=== PATIENT | male | born 1940 | race Caucasian/White ===

== ENCOUNTER 2018-10-10 15:48 | Day surgery (SDC) | payer MEDICARE, BC ==
--- NOTE | 2018-10-10 16:10 | EDM.PDOC ---
ED HPI GENERAL MEDICAL PROBLEM - General Stated Complaint: FOOD IN ESOPHAGUS Time Seen by Provider: 10/10/18 15:48 Source of Information: Reports: Patient, Family History Limitations: Reports: No Limitations - History of Present Illness INITIAL COMMENTS - FREE TEXT/NARRATIVE: 78 y.o.w.m came to the ed with his 4 hours after he swallowed a piece of chicken, which stuck in his lower esophagus. Pt is tot able since noon to pass neither food, nor liquid. He feels pain/pressure at his mid lower at chest and epigastric area. Mild nausea. No SOBn no oter acute med issues. BP 140/90 RR 18 Pulse ox 98% on RA Temp 36.8 HR 60 Onset Date: 10/10/18 Onset Time: 12:00 Duration: Hour(s):, Getting Worse, Intermittent Location: Reports: Abdomen Quality: Reports: Dull Severity: Moderate Improves with: Reports: None Worsens with: Reports: None Context: Reports: Other (Food bolus in esophagus, unable to pass fluid/ food) Associated Symptoms: Reports: No Other Symptoms - Related Data Allergies Allergy/AdvReac Type Severity Reaction Status Date / Time No Known Allergies Allergy Verified 10/06/17 15:46 Home Meds: Home Meds Donepezil HCl [Aricept] 10 mg PO BEDTIME 08/20/15 [History] Fenofibrate,Micronized [Fenofibrate] 134 mg PO DAILY 08/20/15 [History] Metoprolol Succinate 100 mg PO DAILY 08/20/15 [History] Multivitamin with Minerals [Multiple Vitamin] 1 ea PO DAILY 08/20/15 [History] Pantoprazole [ProTONIX] 40 mg PO DAILY 08/20/15 [History] Docosahexanoic Acid/EPA [Fish Oil Concentrate Softgel] 300 mg PO DAILY 10/06/17 [History] Amoxicillin/Clavulanate K [Augmentin 875-125 MG] 1 tab PO BID #7 tablet [Rx] Lisinopril [Zestril] 20 mg PO DAILY #45 tablet 10/09/17 [Rx] Melatonin 3 mg PO BEDTIME PRN #90 tablet 10/09/17 [Rx] Sucralfate [Carafate] 1 gm PO QIDACANDBED #60 tablet 10/10/18 [Rx] Past Medical History HEENT History: Reports: Cataract, Impaired Vision Cardiovascular History: Reports: High Cholesterol, Hypertension Respiratory History: Reports: Other (See Below) Other Respiratory History: SPOUSE STATES PT COUGHS EVERY NIGHT FROM COPD, POSSIBLE SLEEP APNEA Neurological History: Reports: Other (See Below) Other Neuro History: 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 Psychiatric History: Reports: Other (See Below) - Infectious Disease History Infectious Disease History: Reports: Chicken Pox, Measles - Past Surgical History GI Surgical History: Reports: Appendectomy, Hernia, Inguinal Social & Family History - Family History Family Medical History: Noncontributory - Caffeine Use Caffeine Use: Reports: Coffee Other Caffeine Use: 1-2 cups ED ROS GENERAL - Review of Systems Review Of Systems: See Below Constitutional: Reports: No Symptoms HEENT: Reports: No Symptoms Respiratory: Reports: No Symptoms Cardiovascular: Reports: No Symptoms Endocrine: Reports: No Symptoms GI/Abdominal: Reports: Vomiting, Other (possible food bolus in esephagus) : Reports: No Symptoms Musculoskeletal: Reports: No Symptoms Skin: Reports: No Symptoms Neurological: Reports: No Symptoms Psychiatric: Reports: No Symptoms Hematologic/Lymphatic: Reports: No Symptoms Immunologic: Reports: No Symptoms ED EXAM, GI/ABD - Physical Exam Exam: See Below Exam Limited By: No Limitations General Appearance: Alert, WD/WN, Mild Distress Eyes: Bilateral: Normal Appearance Ears: Normal External Exam Nose: Normal Inspection, Normal Mucosa Throat/Mouth: Normal Inspection, Normal Lips, Normal Voice, No Airway Compromise Head: Atraumatic, Normocephalic Neck: Normal Inspection, Supple, Non-Tender, Full Range of Motion Respiratory/Chest: No Respiratory Distress, Lungs Clear, Normal Breath Sounds, No Accessory Muscle Use, Chest Non-Tender Cardiovascular: Normal Peripheral Pulses, Regular Rate, Rhythm, No Edema, No Gallop, No Murmur, No Rub GI/Abdominal Exam: Tender (epigastric) (Male) Exam: Deferred Rectal (Males) Exam: Deferred Back Exam: Normal Inspection, Full Range of Motion Extremities: Normal Inspection, Normal Range of Motion, Non-Tender, Normal Capillary Refill Neurological: Alert, Oriented, CN II-XII Intact, Normal Cognition, Normal Gait Psychiatric: Normal Affect, Normal Mood Skin Exam: Warm, Dry, Intact, Normal Color, No Rash Lymphatic: No Adenopathy Course - Vital Signs Text/Narrative:: 78 y.o.w.m came to the ed with his 4 hours after he swallowed a piece of chicken, which stuck in his lower esophagus. Pt is tot able since noon to pass neither food, nor liquid. He feels pain/pressure at his mid lower at chest and epigastric area. Mild nausea. No SOBn no oter acute med issues. BP 140/90 RR 18 Pulse ox 98% on RA Temp 36.8 HR 60 PE: WNWD W M with a posible food bolus in esophagus Labs: Not indicated Impression: Food bolus in esophagus Tx: LR 125 per hour 4.05 pm Consultation: Dr. Vera, Surgeon: Call the group in and he will do an upper endoscopy Reexam: Ptdid fine in the ED Plan: Upper endoscopy. Dr. Vera took over the care at 4.20 pm Last Recorded V/S: Last Vital Signs Temp 37.1 C 10/10/18 17:21 Pulse 62 10/10/18 18:14 Resp 18 10/10/18 18:14 BP 157/93 H 10/10/18 18:14 Pulse Ox 96 10/10/18 18:14 - Orders/Labs/Meds Orders: Active Orders 24 hr Category Date Time Status Patient Status [ADT] Routine ADT 10/10/18 16:34 Active Patient to Empty Bladder [RC] ASDIRECTED Care 10/10/18 16:34 Active Ready for Discharge [RC] PER UNIT ROUTINE Care 10/10/18 17:16 Active Verify Patient Consent Obtain [RC] ASDIRECTED Care 10/10/18 16:34 Active Resuscitation Status Routine Resus Stat 10/10/18 16:34 Ordered Meds: Medications Discontinued Medications Generic Name Dose Route Start Last Admin Trade Name Dagobertoq PRN Reason Stop Dose Admin Lactated Ringer's 1,000 mls @ 125 mls/hr 10/10/18 16:30 10/10/18 16:35 Ringers, Lactated IV 125 mls/hr ASDIRECTED DAVID Administration Departure - Departure Time of Disposition: 06:00 Disposition: Still A Patient 30 Condition: Good Clinical Impression: Food impaction of esophagus Qualifiers: Encounter type: initial encounter Qualified Code(s): T18.128A - Food in esophagus causing other injury, initial encounter - Discharge Information
[2018-10-10] MEDS ORDERED: Lactated Ringers 1,000 ML IV SCH (16:30)
[2018-10-10] MEDS ORDERED: Lidocaine 2% 100 MG/5 ML Syringe IVPUSH ONE (16:33)
[2018-10-10] MEDS ORDERED: Propofol 200 MG/20 ML SDV IV ONE (16:33)
[2018-10-10] MEDS ORDERED: Succinylcholine 200 MG/10 ML MDV IV ONE (16:33)
[2018-10-10] MEDS ORDERED: Metoclopramide 10 MG/2 ML SDV IVPUSH ONE (16:33)
[2018-10-10] MEDS ORDERED: Ondansetron 4 MG/2 ML SDV IVPUSH ONE (16:33)
--- NOTE | 2018-10-10 16:34 | PCM.HP ---
H&P History of Present Illness - General Date of Service: 10/10/18 Admit Problem/Dx: food impaction - History of Present Illness Initial Comments - Free Text/Narative: 78 yo wm who was eating some chicken and apparently got some food caught in his throat. Apparently has some issues with this in the past. Has never had an upper endoscopy. - Related Data Allergies/Adverse Reactions: Allergies Allergy/AdvReac Type Severity Reaction Status Date / Time No Known Allergies Allergy Verified 10/06/17 15:46 Home Medications: Home Meds Donepezil HCl [Aricept] 10 mg PO BEDTIME 08/20/15 [History] Fenofibrate,Micronized [Fenofibrate] 134 mg PO DAILY 08/20/15 [History] Metoprolol Succinate 100 mg PO DAILY 08/20/15 [History] Multivitamin with Minerals [Multiple Vitamin] 1 ea PO DAILY 08/20/15 [History] Pantoprazole [ProTONIX] 40 mg PO DAILY 08/20/15 [History] Docosahexanoic Acid/EPA [Fish Oil Concentrate Softgel] 300 mg PO DAILY 10/06/17 [History] Amoxicillin/Clavulanate K [Augmentin 875-125 MG] 1 tab PO BID #7 tablet [Rx] Lisinopril [Zestril] 20 mg PO DAILY #45 tablet 10/09/17 [Rx] Melatonin 3 mg PO BEDTIME PRN #90 tablet 10/09/17 [Rx] Past Medical History HEENT History: Reports: Cataract, Impaired Vision Cardiovascular History: Reports: High Cholesterol, Hypertension Respiratory History: Reports: Other (See Below) Other Respiratory History: SPOUSE STATES PT COUGHS EVERY NIGHT FROM COPD, POSSIBLE SLEEP APNEA Neurological History: Reports: Other (See Below) Other Neuro History: 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 Psychiatric History: Reports: Other (See Below) - Infectious Disease History Infectious Disease History: Reports: Chicken Pox, Measles - Past Surgical History GI Surgical History: Reports: Appendectomy, Hernia, Inguinal Social & Family History - Family History Family Medical History: Noncontributory - Caffeine Use Caffeine Use: Reports: Coffee Other Caffeine Use: 1-2 cups H&P Review of Systems - Review of Systems: Review Of Systems: See Below General: Reports: No Symptoms HEENT: Reports: No Symptoms Pulmonary: Reports: No Symptoms Cardiovascular: Reports: Chest Pain Gastrointestinal: Reports: Difficulty Swallowing, Vomiting Genitourinary: Reports: No Symptoms Skin: Reports: No Symptoms Neurological: Reports: Other (memory issues ) Exam - Exam Exam: See Below - Vital Signs Vital Signs: Last Vital Signs Temp 97.8 F 10/10/18 15:50 Pulse 60 10/10/18 15:50 Resp 17 10/10/18 15:50 BP 140/91 H 10/10/18 15:50 Pulse Ox 98 10/10/18 15:50 Weight: 90.718 kg - Exam General: Alert, Cooperative HEENT: PERRLA, Conjunctiva Clear, EACs Clear, EOMI, Hearing Intact Neck: Supple, Trachea Midline Lungs: Clear to Auscultation, Normal Respiratory Effort Cardiovascular: Regular Rate, Regular Rhythm GI/Abdominal Exam: Normal Bowel Sounds, Soft, Non-Tender Skin: Warm, Dry, Intact *Q Meaningful Use (ADM) - VTE *Q VTE Pharmacological Contraindications *Q: Patient Scheduled Surgery - Problem List (1) Food impaction of esophagus SNOMED Code(s): 252402672 ICD Code: T18.128A - FOOD IN ESOPHAGUS CAUSING OTHER INJURY, INITIAL ENCOUNTER Status: Acute Qualifiers: Encounter type: initial encounter Qualified Code(s): T18.128A - Food in esophagus causing other injury, initial encounter Problem List Initiated/Reviewed/Updated: Yes Orders Last 24hrs: Active Orders 24 hr Category Date Time Status Lactated Ringers [Ringers, Lactated] 1,000 ml Med 10/10/18 16:30 Active IV ASDIRECTED Medication Orders Lactated Ringer's (Ringers, Lactated) 1,000 mls @ 125 mls/hr IV ASDIRECTED DAVID Assessment/Plan Comment:: egd with removal. risks explained to the patient. he asks us to proceed.
--- NOTE | 2018-10-10 17:15 | PCM.OPNOTE ---
- General Post-Op/Procedure Note Date of Surgery/Procedure: 10/10/18 Operative Procedure(s): egd with removal food impaction. and biopsy Findings: impacted food at ge junction gastroduodenitis Pre Op Diagnosis: food impaction Post-Op Diagnosis: impacted food at ge junction. gastroduodenitis Anesthesia Technique: General ET Tube Primary Surgeon: Dk Vera Anesthesia Provider: Brayan Lu Pathology: stomach and duodenum Complications: None Condition: Good Free Text/Narrative:: see dictation
--- NOTE | 2018-10-10 18:09 | OR ---
DATE OF OPERATION: 10/10/2018 SURGEON: Dk Vera MD PREOPERATIVE DIAGNOSIS: Food impaction. POSTOPERATIVE DIAGNOSIS: Food impaction and gastroduodenitis with some esophagitis. INDICATIONS FOR PROCEDURE: This is a 78-year-old white male who apparently was eating lunch today and got some chicken stuck and not been able to pass it. He was offered and accepted an EGD. DESCRIPTION OF OPERATION: After an excellent general anesthetic was administered via endotracheal tube, the flexible endoscope was passed without difficulty down the patient's esophagus. The patient was edentulous, so a bite block was not required. At arriving at the GE junction, there was some impacted chicken. We were able to free the impaction with a grasper. The stomach was entered easily. There was really no marked stricture noted. There was some esophageal irritation noted. The scope was passed through the stomach to the duodenum and slowly withdrawn. The following findings were noted. In addition to the esophageal findings are some duodenitis and gastritis and several biopsies were taken. The stomach was deflated, scope was removed. The patient tolerated the procedure well. /[id number] /MODL
[2018-10-10 18:31] VITALS: BP 157/93; PULSE 62
== END 2018-10-10 18:35 | disposition home or self-care (01) ==
LOC: FB.ED 15:48 → FB.SDS 16:32 → FB.MS 17:43 → FB.SDS 18:35
PROVIDERS: ATTEND Surgery
DX: T18.128A Food in esophagus causing other injury, initial encounter (principal); K29.50 Unspecified chronic gastritis without bleeding; K29.80 Duodenitis without bleeding; K21.0 Gastro-esophageal reflux disease with esophagitis; I10 Essential (primary) hypertension; E78.00 Pure hypercholesterolemia, unspecified; J44.9 Chronic obstructive pulmonary disease, unspecified; F03.90 Unspecified dementia, unspecified severity, without behavioral disturbance, psychotic disturbance, mood disturbance, and anxiety; Z79.899 Other long term (current) drug therapy
CPT/HCPCS: 00731; 43239; 43247; 88305; 88342; 99283; J0330; J2001; J2405; J2704; J2765; J7120

== ENCOUNTER 2018-11-09 13:32 | Emergency (ER) | payer MEDICARE, BC ==
[2018-11-09 14:22] VITALS: BP 135/75
[2018-11-09] MEDS ORDERED: Rabies Immune Globulin PF 150 Units/ML 2 ML SDV IM ONE (14:30)
--- NOTE | 2018-11-09 14:36 | EDM.PDOC ---
ED HPI GENERAL MEDICAL PROBLEM - General Chief Complaint: Skin Complaint Stated Complaint: BAT BITE Time Seen by Provider: 11/09/18 14:30 Source of Information: Reports: Patient - History of Present Illness INITIAL COMMENTS - FREE TEXT/NARRATIVE: Patient is a 78 yo WM who was bitten by a bat on his Rt index finger a week ago. he denies any fever/chills,headache,malaise,N/V. he just want to be checked. - Related Data Allergies Allergy/AdvReac Type Severity Reaction Status Date / Time No Known Allergies Allergy Verified 11/09/18 14:16 Home Meds: Home Meds Donepezil HCl [Aricept] 10 mg PO BEDTIME 08/20/15 [History] Metoprolol Succinate 100 mg PO DAILY 08/20/15 [History] Multivitamin with Minerals [Multiple Vitamin] 1 ea PO DAILY 08/20/15 [History] Pantoprazole [ProTONIX] 40 mg PO DAILY 08/20/15 [History] Docosahexanoic Acid/EPA [Fish Oil Concentrate Softgel] 300 mg PO DAILY 10/06/17 [History] Lisinopril [Zestril] 20 mg PO DAILY #45 tablet 10/09/17 [Rx] Melatonin 3 mg PO BEDTIME PRN #90 tablet 10/09/17 [Rx] Sucralfate [Carafate] 1 gm PO QIDACANDBED #60 tablet 10/10/18 [Rx] Past Medical History HEENT History: Reports: Cataract, Impaired Vision Cardiovascular History: Reports: High Cholesterol, Hypertension Respiratory History: Reports: Other (See Below) Other Respiratory History: SPOUSE STATES PT COUGHS EVERY NIGHT FROM COPD, POSSIBLE SLEEP APNEA Neurological History: Reports: Other (See Below) Other Neuro History: 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 Psychiatric History: Reports: Other (See Below) - Infectious Disease History Infectious Disease History: Reports: Chicken Pox, Measles - Past Surgical History GI Surgical History: Reports: Appendectomy, Hernia, Inguinal Social & Family History - Family History Family Medical History: Noncontributory - Caffeine Use Caffeine Use: Reports: Coffee Other Caffeine Use: 1-2 cups ED ROS GENERAL - Review of Systems Review Of Systems: See Below Constitutional: Reports: No Symptoms HEENT: Reports: No Symptoms Respiratory: Reports: No Symptoms Cardiovascular: Reports: No Symptoms Endocrine: Reports: No Symptoms GI/Abdominal: Reports: No Symptoms : Reports: No Symptoms, Urinary Retention Skin: Reports: No Symptoms Neurological: Reports: No Symptoms ED EXAM, SKIN/RASH Exam: See Below Exam Limited By: No Limitations General Appearance: Alert, WD/WN, No Apparent Distress Ears: Normal External Exam, Normal Canal, Hearing Grossly Normal, Normal TMs Nose: Normal Inspection, Normal Mucosa, No Blood Throat/Mouth: Normal Inspection, Normal Lips, Normal Teeth, Normal Gums, Normal Oropharynx, Normal Voice, No Airway Compromise Head: Atraumatic, Normocephalic Neck: Normal Inspection, Supple, Non-Tender, Full Range of Motion Respiratory/Chest: No Respiratory Distress, Lungs Clear, Normal Breath Sounds, No Accessory Muscle Use, Chest Non-Tender Cardiovascular: Normal Peripheral Pulses, Regular Rate, Rhythm, No Edema, No Gallop, No JVD, No Murmur, No Rub GI/Abdominal: Normal Bowel Sounds, Soft, Non-Tender, No Organomegaly, No Distention, No Abnormal Bruit, No Mass (Male) Exam: No Hernia, Normal Inspection, Normal Prostate, Circumcised Rectal (Males) Exam: Normal Exam, Normal Rectal Tone, Prostate Normal Back Exam: Normal Inspection, Full Range of Motion, NT Extremities: Normal Inspection, Normal Range of Motion, Non-Tender, No Pedal Edema, Normal Capillary Refill Neurological: Alert, Oriented, CN II-XII Intact, Normal Cognition, Normal Gait, Normal Reflexes, No Motor/Sensory Deficits Psychiatric: Normal Affect, Normal Mood Skin: Warm, Dry, Other (there is 1 cm liner laceration that has already healed at the tip of the right index finger. No signs of infection is noted.) Lymphatic: No Adenopathy Course - Vital Signs Last Recorded V/S: Last Vital Signs Temp Pulse 73 11/09/18 13:45 Resp 18 11/09/18 13:45 BP 135/75 11/09/18 13:45 Pulse Ox 95 11/09/18 13:45 - Orders/Labs/Meds Orders: Active Orders 24 hr Category Date Time Status Rabies Vaccine (Henry) [RabAvert] Med 11/09/18 15:00 Once 2.5 unit IM .ONCE ONE Medication Orders Rabies Vaccine (Rabavert) 2.5 unit IM .ONCE ONE Stop: 11/09/18 15:01 Meds: Medications Generic Name Dose Route Start Last Admin Trade Name Freq PRN Reason Stop Dose Admin Rabies Vaccine 2.5 unit 11/09/18 15:00 Rabavert IM 11/09/18 15:01 .ONCE ONE Discontinued Medications Generic Name Dose Route Start Last Admin Trade Name Freq PRN Reason Stop Dose Admin Rabies Immune Globulin 1,860 unit 11/09/18 14:30 Imogam Rabies-Ht IM 11/09/18 14:31 .ONCE ONE Departure - Departure Time of Disposition: 14:30 Disposition: Home, Self-Care 01 Condition: Good Clinical Impression: Bat bite of finger - Discharge Information Instructions: Animal Bite, Adult, [id number] Referrals: Manjinder Trujillo MD [Primary Care Provider] - Forms: ED Department Discharge Additional Instructions: return to the ED on the dates that are written on your discharge instruction for the other rabies vaccine to be given 11/12 11/16 11/23 - My Orders Last 24 Hours: My Active Orders 11/09/18 15:00 Rabies Vaccine (Henry) [RabAvert] 2.5 unit IM .ONCE ONE - Assessment/Plan Last 24 Hours: My Active Orders 11/09/18 15:00 Rabies Vaccine (Henry) [RabAvert] 2.5 unit IM .ONCE ONE
[2018-11-09] MEDS ORDERED: Rabies Vaccine (Avian) 2.5 Unit Inj Kit IM ONE (15:00)
== END 2018-11-09 15:10 | disposition home or self-care (01) ==
LOC: FB.ED 13:32
DX: S61.250A Open bite of right index finger without damage to nail, initial encounter (principal); S61.210A Laceration without foreign body of right index finger without damage to nail, initial encounter; Z23 Encounter for immunization; I10 Essential (primary) hypertension; Z79.899 Other long term (current) drug therapy; W55.81XA Bitten by other mammals, initial encounter
CPT/HCPCS: 90376; 90471; 90675; 96372; 99283

== ENCOUNTER 2023-10-08 15:31 | Emergency (ER) | payer MEDICARE, BC ==
[2023-10-08 17:45] VITALS: BP 130/67; PULSE 89
== END 2023-10-08 17:35 ==
LOC: FB.ED 15:31
DX: R13.19 Other dysphagia (principal); F03.B0 Unspecified dementia, moderate, without behavioral disturbance, psychotic disturbance, mood disturbance, and anxiety; I10 Essential (primary) hypertension; E78.00 Pure hypercholesterolemia, unspecified; Z79.899 Other long term (current) drug therapy
CPT/HCPCS: 71045; 99284

== ENCOUNTER 2024-02-16 16:58 | Inpatient (IN) | payer MEDICARE, BC ==
[2024-02-16 17:22] LABS: HEMATOCRIT 48.2 % (38.3-50.1); HEMOGLOBIN 16.1 g/dL (12.9-17.7); MEAN CORPUSCULAR HEMOGLOBIN 30.6 pg (27.0-33.3); MEAN CORPUSCULAR HGB CONC 33.5 g/dL (28.7-35.3); MEAN CORPUSCULAR VOLUME 91.5 fL (80.8-98.7); MEAN PLATELET VOLUME 8.5 fL (6.7-11.0); PLATELET COUNT,PLT 208 x10(3)uL (117-477); RED BLOOD CELL COUNT 5.26 x10(6)uL (3.90-5.90); WHITE BLOOD CELL COUNT,WBC 15.9 x10-3/uL (3.2-10.1)
[2024-02-16 17:26] LABS: BLOOD UREA NITROGEN,BUN 31 mg/dL (7-18); BUN/CREATININE RATIO 25.8 (9-20); CARBON DIOXIDE,CO2 27 mmol/L (21-32); CHLORIDE,CL 104 mmol/L (100-110); CREATININE 1.2 mg/dL (0.70-1.30); ESTIMATED GFR 61 mL/min (>60); GLUCOSE RANDOM 136 mg/dL (80-116); POTASSIUM,K 4.1 mmol/L (3.5-5.3); SODIUM,NA 140 mmol/L (135-145)
[2024-02-16 17:32] LABS: ALANINE AMINOTRANSFERASE,ALT 27 U/L (12-36); ALBUMIN 3.7 g/dL (3.2-4.6); ALKALINE PHOSPHATASE 134 IU/L (56-112); ASPARTATE AMNIOTRANSFERASE,AST 21 IU/L (5-25); BILIRUBIN TOTAL 0.4 mg/dL (0.1-1.3); PROTEIN TOTAL,TP 7.5 g/dL (6.0-8.0)
[2024-02-16 17:36] LABS: BAND PERCENT MAN 2 % (0-6); LACTIC ACID 1.9 mmol/L (0.4-2.0); LYMPHOCYTES PERCENT MAN 5 % (13-37); MONOCYTES PERCENT MAN 8 % (4-12); SEG NEUTROPHILS PERCENT MAN 85 % (46-82)
[2024-02-16] MEDS: Cefepime 2 GM Vial IVPUSH ONE (17:44)
[2024-02-16] MEDS: VANCOmycin 1.5 GM/300 ML 1.5 GM in Premix Bag 1 BAG IV ONE (17:46)
[2024-02-16] MEDS: LORazepam 2 MG/ML SDV IVPUSH ONE (18:40)
[2024-02-16] MEDS: Ondansetron 4 MG/2 ML SDV IVPUSH ONE (18:48)
[2024-02-16] MEDS ORDERED: Ondansetron 4 MG/2 ML SDV IV PRN (19:00)
[2024-02-16] MEDS ORDERED: Acetaminophen 325 MG Tab PO PRN (19:00)
[2024-02-16] MEDS ORDERED: Albuterol 0.083% 2.5 MG/3 ML Neb Soln NEB PRN (19:00)
[2024-02-16] MEDS ORDERED: Sennosides/Docusate Sodium 50-8.6 MG Tab PO PRN (19:00)
[2024-02-16] MEDS: Sodium Chloride 0.9% 1,000 ML IV SCH (19:03)
[2024-02-16] MEDS: Acetaminophen 325 MG Supp RECTAL ONE (20:49)
[2024-02-16] MEDS ORDERED: Metoprolol Tartrate 5 MG/5 ML SDV IVPUSH ONE (20:56)
[2024-02-16] MEDS ORDERED: Morphine 2 MG/ML SYRINGE IVPUSH PRN (20:56)
[2024-02-16] MEDS: VANCOmycin 1.75 GM/350 ML 1.75 GM in Premix Bag 1 BAG IV ONE (21:08)
[2024-02-16 21:15] LABS: TROPONIN I 845.3 pg/mL (4.0-60.3)
[2024-02-16] MEDS: Scopalamine 1mg/3day Transdermal Patch TRDERM SCH (21:31)
[2024-02-16] MEDS: Morphine 4 MG/ML VIAL IVPUSH PRN ×2 (21:32→23:39)
[2024-02-16] MEDS: Saccharomyces Boulardii (Probiotic) 250 MG Cap PO SCH (21:38)
[2024-02-16] MEDS: Albuterol/Ipratropium 3.0-0.5 MG/3 ML Neb Soln NEB SCH (21:41)
[2024-02-16] MEDS: Enoxaparin 40 MG/0.4 ML Syringe SUBCUT SCH (21:42)
[2024-02-16] MEDS: Metoprolol Tartrate 5 MG/5 ML SDV IVPUSH ONE (21:44)
[2024-02-16] MEDS: Sodium Chloride 0.9% 10 ML Syringe FLUSH PRN (21:51)
[2024-02-17 06:47] LABS: HEMATOCRIT 50.5 % (38.3-50.1); HEMOGLOBIN 16.9 g/dL (12.9-17.7); MEAN CORPUSCULAR HGB CONC 33.5 g/dL (28.7-35.3); MEAN CORPUSCULAR VOLUME 92.6 fL (80.8-98.7); PLATELET COUNT,PLT 219 x10(3)uL (117-477); RED BLOOD CELL COUNT 5.46 x10(6)uL (3.90-5.90); RED CELL DISTRIBUTION WIDTH 14.5 % (12.4-15.0); WHITE BLOOD CELL COUNT,WBC 18.9 x10-3/uL (3.2-10.1)
[2024-02-17 06:59] LABS: A/G RATIO 0.8; ALANINE AMINOTRANSFERASE,ALT 95 U/L (12-36); ALBUMIN 2.9 g/dL (3.2-4.6); ALKALINE PHOSPHATASE 112 IU/L (56-112); ASPARTATE AMNIOTRANSFERASE,AST 107 IU/L (5-25); BILIRUBIN TOTAL 0.6 mg/dL (0.1-1.3); BLOOD UREA NITROGEN,BUN 46 mg/dL (7-18); BUN/CREATININE RATIO 19.2 (9-20); CALCIUM 8.5 mg/dL (8.6-10.2); CARBON DIOXIDE,CO2 20 mmol/L (21-32); CHLORIDE,CL 109 mmol/L (100-110); ESTIMATED GFR 26 mL/min (>60); GLUCOSE RANDOM 155 mg/dL (80-116); POTASSIUM,K 5.4 mmol/L (3.5-5.3); PROTEIN TOTAL,TP 6.6 g/dL (6.0-8.0); SODIUM,NA 144 mmol/L (135-145)
[2024-02-17 07:15] LABS: CREATININE 2.4 mg/dL (0.70-1.30)
[2024-02-17 07:17] LABS: BAND PERCENT MAN 13 % (0-6); LYMPHOCYTES PERCENT MAN 10 % (13-37); MONOCYTES PERCENT MAN 7 % (4-12); SEG NEUTROPHILS PERCENT MAN 70 % (46-82)
[2024-02-17] MEDS: Cefepime 1 GM Vial IVPUSH SCH (09:36)
[2024-02-17] MEDS ORDERED: VANCOmycin 1.5 GM/300 ML 1.5 GM in Premix Bag 1 BAG IV SCH (18:00)
[2024-02-17] MEDS: VANCOmycin 750 MG in Sodium Chloride 0.9% 250 ML IV SCH (18:01)
[2024-02-17] MEDS: Acetaminophen 650 MG Supp RECTAL PRN (20:40)
[2024-02-18] MEDS ORDERED: Hyoscyamine 0.125 MG/ML Bottle PO PRN (03:21)
[2024-02-18] MEDS: Hyoscyamine 0.125 MG Tab.SL SL PRN (04:08)
[2024-02-18] MEDS: Morphine 2 MG/ML SYRINGE IVPUSH PRN (04:15)
[2024-02-18] MEDS: LORazepam 2 MG/ML SDV IVPUSH PRN (09:58)
[2024-02-20] MEDS: Morphine 4 MG/ML VIAL IVPUSH PRN (23:54)
[2024-02-22 01:50] VITALS: PULSE 84
[2024-02-22 10:40] VITALS: BP 142/79
== END 2024-02-22 11:45 | DRG 871 ==
LOC: FB.ED 16:58 → FB.MS 19:00
PROVIDERS: ADMIT Emergency Medicine; ATTEND Internal Medicine
DX: A41.9 Sepsis, unspecified organism (principal); E86.0 Dehydration; G92.8 Other toxic encephalopathy; R65.21 Severe sepsis with septic shock; I10 Essential (primary) hypertension; J18.9 Pneumonia, unspecified organism; J96.01 Acute respiratory failure with hypoxia; G93.40 Encephalopathy, unspecified; J81.0 Acute pulmonary edema; F02.811 Dementia in other diseases classified elsewhere, unspecified severity, with agitation; E78.00 Pure hypercholesterolemia, unspecified; Z90.49 Acquired absence of other specified parts of digestive tract; N17.9 Acute kidney failure, unspecified; N39.0 Urinary tract infection, site not specified; Z66 Do not resuscitate; H54.7 Unspecified visual loss; H26.9 Unspecified cataract; R74.01 Elevation of levels of liver transaminase levels; R79.89 Other specified abnormal findings of blood chemistry; J44.9 Chronic obstructive pulmonary disease, unspecified; G30.9 Alzheimer's disease, unspecified; F02.80 Dementia in other diseases classified elsewhere, unspecified severity, without behavioral disturbance, psychotic disturbance, mood disturbance, and anxiety; K59.09 Other constipation; E78.5 Hyperlipidemia, unspecified; E87.5 Hyperkalemia; Z79.899 Other long term (current) drug therapy; Z98.49 Cataract extraction status, unspecified eye; Z94.9 Transplanted organ and tissue status, unspecified; Z98.890 Other specified postprocedural states
CPT/HCPCS: 36415; 80053; 81001; 83605; 83880; 84484; 85025 ×2; 86140; 87040 ×2; 87086; 87428; J0692; J2060; J2405; J3372; 51702; 71045; 80202; 94640; 99285; A9270-GY; J1650; J2270; J3370; J3490; J7030; J7050; J7620